=== PATIENT | male | born 1940 | race Caucasian/White ===

== ENCOUNTER 2016-09-23 11:47 | Emergency (ER) | payer MEDICARE, OTHER ==
[2016-09-23 14:03] LABS: HEMOGLOBIN 12.4 gm/dl (14.0-17.5); RED BLOOD COUNT 4.17 M/UL (4.20-5.50); WHITE BLOOD COUNT 6.9 K/UL (4.5-11.0)
[2016-09-23 14:25] LABS: BUN/CREATININE RATIO 21 (0-10)
== END 2016-09-23 16:27 | disposition home or self-care (01) ==
LOC: ER1 11:47
PROVIDERS: Physician Assistant
DX: R07.89 Other chest pain (principal); E87.6 Hypokalemia; I25.2 Old myocardial infarction; I10 Essential (primary) hypertension; E78.5 Hyperlipidemia, unspecified; Z90.49 Acquired absence of other specified parts of digestive tract; Z87.891 Personal history of nicotine dependence; Z88.1 Allergy status to other antibiotic agents; Z79.82 Long term (current) use of aspirin; Z79.899 Other long term (current) drug therapy
CPT/HCPCS: 36415; 71010; 80053; 82550; 82553; 83874; 84484; 85025; 93005; 99285